=== PATIENT | male | born 1965 | race Caucasian/White ===

== ENCOUNTER 2022-06-30 09:26 | Inpatient (IN) | payer SELFPAY ==
--- OUTSIDE RECORDS SUMMARY | 2022-06-30 09:30 | XMS REPORT | Continuity of Care Document ---
:1965 Author Organization [facility] t Address [address] [place] [address] Care Team Providers Name Role Phone Atif PARKER, Best Mckenzie Primary Care Physician Mr. TITI FRANKS Attending Clinician Unavailable allan Attending Clinician Unavailable Lisa MARI, Michael Saunders Attending Clinician [phone] MARCI LUNA Attending Clinician Unavailable MARCI LUNA Admitting Clinician Unavailable Payers Payer Name Policy Type Policy Number Effective Date Expiration Date S ource Sliding Fee - P [id number] 2018 2019 Cat 1 00:00:00 00:00:00 Problems Condition Condition Condition Status Onset Resolution Last Treating Co mments Source Name Details Category Date Date Treatment Clinician Date Left Left Disease Active Methodi shoulder shoulder 2-28 st pain pain 00:00: Hospita 00 l Impingemen Impingemen Disease Active M ethodi t syndrome t syndrome 2-28 st of left of left 00:00: Hospita shoulder shoulder 00 l Allergies, Adverse Reactions, Alerts Allergy Allergy Status Severity Reaction(s) Onset Inactive Treating Comm ents Source Name Type Date Date Clinician IODINE; Miscella Active U Not Alevism IODINE neous Specified 09-13 Hospita CONTAINI Allergy 22:53: l NG 14 ([place]) IODINE; Miscella Active U Not Alevism IODINE neous Specified 09-13 Hospita CONTAINI Allergy 22:53: l NG 14 ([place]) IODINE; Miscella Active U Not Alevism IODINE neous Specified 09-13 Hospita CONTAINI Allergy 22:53: l NG 14 ([place]) IODINE; Miscella Active U Not Alevism IODINE neous Specified 09-13 Hospita CONTAINI Allergy 22:53: l NG 14 ([place]) IODINE; Miscella Active U Not Alevism IODINE neous Specified 09-13 Hospita CONTAINI Allergy 22:53: l NG 14 ([place]) No Known NA Active Alevism Allergie 09-13 Hospita s 21:22: l 08 ([place]) No Known NA Active Alevism Allergie 09-13 Hospita s 18:53: l 41 ([place]) Iodine Propensi Active Methodi ty to 04-07 st adverse 00:00: Hospita reaction 00 l s to drug Social History Social Habit Start Date Stop Date Quantity Comments Source [facility] History SDHI [facility] al History [facility] History [facility] Comment [facility] Tobacco use and 2021-10-17 2021-10-17 Smokeless [facility] exposure 00:00:00 00:00:00 tobacco non-user Hospital Alcohol intake 2021-10-17 2021-10-17 Current [facility] 00:00:00 00:00:00 non-drinker of Hospital alcohol (finding) History of Social 2021-10-17 2021-10-[address] function 00:00:00 00:00:00 Hospital History SDOH 2018-04-07 2018-04-07 1 [facility] Frequency 00:00:00 00:00:00 Hospita l Sex Assigned At [birth year] [facility] 00[facility]00 [facility] Smoking Status Start Date Stop Date Source Never smoked tobacco [facility] Medications Ordered Filled Start Stop Current Ordering Indication Dosage Frequency Signature Comments Components Source Medication Medication Date Date Medication? Clinician (SIG) Name Name pravastatin 2021- No 10mg QD Take 10 mg Methodi (PRAVACHOL) 10-[address] 10 MG 13:16: 00:00 nightly. Hospita tablet 54 :00 l pravastatin 2021- No 10mg QD Take 10 mg [facility] (PRAVACHOL) 10-[address] 10 MG 13:16: 00:00 nightly. Hospita tablet 54 :00 l metFORMIN 2021- No 500mg Q.5D Take 500 Me thodi (GLUCOPHAGE 10-[address] ) 500 mg 13:16: 00:00 mouth 2 Hospi ta tablet 50 :00 (two) l times a day with meals. metFORMIN 2021-2021- No 500mg Q.5D Take 500 Me thodi (GLUCOPHAGE 10-[address] ) 500 mg 13:16: 00:00 mouth 2 Hospi ta tablet 50 :00 (two) l times a day with meals. chlorthalid 2021- No 25mg QD Take 1 Met hodi one 10-17 10-10 tablet (25 st (HYGROTEN) 00:00: 04:59 mg total) H ospita 25 MG 00 :00 by mouth l tablet daily for 30 days. gabapentin 2021- No 100mg Q.5D Take 1 Met hodi (NEURONTIN) 10-17 10-[address] 100 mg 00:00: 04:59 (100 mg Hospita capsule 00 :00 total) by l mouth 2 (two) times a day for 30 days. Glumetza 2021- No 1000mg QD Take 1 Meth stephany 1,000 mg 24 10-17-[address] hr tablet 00:00: 04:59 (1,000 mg Ho spita 00 :00 total) by l mouth daily with breakfast for 30 days. Jardiance 2021-2021- No 10mg QD Take 1 Metho di 10 mg 10-17 10-10 tablet (10 st tablet 00:00: 04:59 mg total) Hospi ta tablet 00 :00 by mouth l daily for 30 days. chlorthalid 2021-0 2021- No 25mg QD Take 1 Met hodi one 9-09 10-10 tablet (25 st (HYGROTEN) 00:00: 04:59 mg total) H ospita 25 MG 00 :00 by mouth l tablet daily for 30 days. gabapentin 2021- No 100mg Q.5D Take 1 Met hodi (NEURONTIN) 10-[address] 100 mg 00:00: 04:59 (100 mg Hospita capsule 00 :00 total) by l mouth 2 (two) times a day for 30 days. Glumetza No 1000mg QD Take 1 Meth stephany 1,000 mg 24 10-[address] hr tablet 00:00: 04:59 (1,000 mg Ho spita 00 :00 total) by l mouth daily with breakfast for 30 days. Jardiance No 10mg QD Take 1 Metho di 10 mg 10-17 tablet (10 st tablet 00:00: 04:59 mg total) Hospi ta tablet 00 :00 by mouth l daily for 30 days. amoxicillin 2021- No 1{tbl} Q.5D Take 1 M ethodi -pot 10-[address] clavulanate 00:00: 04:59 mouth 2 Ho spita (Augmentin) 00 :00 (two) l 875-125 mg times a per tablet day for 10 days. amoxicillin 2021- No 1{tbl} Q.5D Take 1 M ethodi -pot 10-[address] clavulanate 00:00: 04:59 mouth 2 Ho spita (Augmentin) 00 :00 (two) l 875-125 mg times a per tablet day for 10 [place] [id number] 1{tbl} Q6H Take 1 Methodi en-codeine 10-[address] (TYLENOL 00:00: 04:59 mouth Hospita WITH 00 :00 every 6 l CODEINE #3) (six) 300-30 mg hours as per tablet needed for moderate pain for up to 5 [place] [id number] 1{tbl} Q6H Take 1 Methodi en-codeine 10-[address] (TYLENOL 00:00: 04:59 mouth Hospita WITH 00 :00 every 6 l CODEINE #3) (six) 300-30 mg hours as per tablet needed for moderate pain for up to 5 days .acute pain. chlorthalid 2021-2021- No Metho di one 08-22 st (HYGROTEN) 00:00: 00:00 Hospit a 25 MG 00 :00 l tablet Jardiance 2021-0 202- No Methodi 10 mg 08-22 st tablet 00:00: 00:00 Hospita tablet 00 :00 l gabapentin 2021-0 202- No Method i (NEURONTIN) 08-22 st 100 mg 00:00: 00:00 Hospita capsule 00 :00 l Glumetza 2021-0 202- No Methodi 1,000 mg 24 08-22 st hr tablet 00:00: 00:00 Hospita 00 :00 l chlorthalid 2021-0 2021- No Metho di one 08-22 st (HYGROTEN) 00:00: 00:00 Hospit a 25 MG 00 :00 l tablet Jardiance 2021-0 2- No Methodi 10 mg 08-22 st tablet 00:00: 00:00 Hospita tablet 00 :00 l gabapentin 2021-0 2022- No Method i (NEURONTIN) 08-22 st 100 mg 00:00: 00:00 Hospita capsule 00 :00 l Glumetza 2022-0 2022- No Methodi 1,000 mg 24 08-22 st hr tablet 00:00: 00:00 Hospita 00 :00 l pravastatin 2019-0 Yes 10mg QD Take 10 mg Methodi (PRAVACHOL) 2-[address] 10 MG 08:55: nightly. Hospita tablet 55 l metFORMIN 2019-0 Yes 500mg Q.5D Take 500 Met hodi (GLUCOPHAGE 2-[address] ) 500 mg 08:21: mouth 2 Hospit a tablet 49 (two) l times a day with meals. Vital Signs Vital Name Observation Time Observation Value Comments Source Systolic blood 2021-10-17 22:59:50 153 mm[Hg] [facility] pressure Diastolic blood 2021-10-17 22:59:50 76 mm[Hg] Metho dist Hospital pressure Heart rate 2021-10-17 22:59:50 97 /min [facility] Respiratory rate 2021-10-17 22:59:50 20 /min [facility] Oxygen saturation in 2021-10-17 22:59:50 98 /min [facility] Arterial blood by Pulse oximetry Body temperature 2021-10-17 18:12:48 36.67 Dian [facility] Body height 2021-10-17 18:10:00 170.2 cm [facility] Body weight 2021-10-17 18:10:00 81.647 kg [facility] BMI 2021-10-17 18:10:00 28.19 kg/m2 [facility] Procedures Procedure Date / Time Performing Clinician Source Performed ED REFERRAL TO [place] 2021-10-17 22:13:50 Michael Gonzalez [facility] PHYSICIAN Chip ORGANIZATION (PCP) CBC WITH PLATELET AND 2021-10-17 19:41:00 Ben Madrigal [facility] DIFFERENTIAL COMPREHENSIVE METABOLIC 2021-10-17 19:41:00 Ben Madrigal [facility] PANEL ESTIMATED GFR 2021-10-17 19:41:00 Ben Madrigal [facility] ospital POC GLUCOSE 2021-10-17 18:14:00 Provider, Unknown [facility] Plan of Care Planned Activity Planned Date Details Comments Source Future Scheduled 2022-06-30 COVID-19 VACCINE (#1) [facility] [place] [place] Test 09:29:48 [code = COVID-19 VACCINE (#1)] Future Scheduled 2022-06-30 Hepatitis C screening [facility] [place] Test 09:29:48 (procedure) [code = 671347358] Future Scheduled 2022-06-[address] [facility] [place] Test 09:29:48 [code = COLONOSCOPY SCREENING] Future Scheduled 2022-06-30 SHINGLES VACCINES (1 Met [facility] Test 09:29:48 of 2) [code = SHINGLES VACCINES (1 of 2)] Future Scheduled 2022-06-30 INFLUENZA VACCINE Method [facility] Test 09:29:48 [code = INFLUENZA VACCINE] Future Scheduled 2022-05-15 COVID-19 VACCINE (#1) [facility] [place] Test 15:48:39 [code = COVID-19 VACCINE (#1)] Future Scheduled 2022-05-15 Hepatitis C screening [facility] [place] [place] Test 15:48:39 (procedure) [code = 605620284] Future Scheduled 2022-05-[address] [facility] [place] Test 15:48:39 [code = COLONOSCOPY SCREENING] Future Scheduled 2022-05-15 SHINGLES VACCINES (1 Met [facility] Test 15:48:39 of 2) [code = SHINGLES VACCINES (1 of 2)] Future Scheduled 2022-05-15 INFLUENZA VACCINE [facility] Hospital Test 15:48:39 [code = INFLUENZA VACCINE] Future Scheduled 2020-12-11 COVID-19 VACCINE (1) Met [facility] Test 16:07:36 [code = COVID-19 VACCINE (1)] Future Scheduled 2020-12-11 Hepatitis C screening [facility] [place] [place] Test 16:07:36 (procedure) [code = 557651157] Future Scheduled 2020-12-[address] [facility] [place] Test 16:07:36 [code = COLONOSCOPY SCREENING] Future Scheduled 2020-12-11 SHINGLES VACCINES [facility] Hospital Test 16:07:36 (#1) [code = SHINGLES VACCINES (#1)] Future Scheduled 2020-12-11 INFLUENZA VACCINE Method is Hospital Test 16:07:36 [code = INFLUENZA VACCINE] Encounters Start End Encounter Admission Attending Care Care Encounter Source Date/Time Date/Time Type Type Clinicians Facility Department ID 2021-08-18 Outpatient [facility] [id number] [place] 11:32:19 TITI [id number] [address] 2021-08-18 Outpatient jose [facility] [id number] [place] 09:29:04 [id number] [facility] 2020-11-21 Outpatient [facility] [id number] [facility] 18:09:56 [id number] [facility] 2021-10-17 2021-10-17 Emergency Imanignani, 1.2.840.1 [id number] Methodi 14:37:00 18:01:00 Michael Saunders [id number] 3.430.2.7 Hospit a .3.018775 l .8 2021-10-17 2021-10-17 Emergency Lisa, 1.2.840.1 [id number] Methodi 14:37:00 18:01:00 Michael Saunders [id number] 3.430.2.7 Hospit a .3.195230 l .8 2021-08-22 2021-08-22 Outpatient [id number]. 2.16.540.1. 9 [id number] [facility] 16:52:07 16:52:07 [id number]. [id number] [facility] 19.2 [facility] 2020-09-13 2020-09-13 Emergency DAWSON LUNA QER [id number] Alevism 18:53:00 18:53:00 MARCI Hospit a l ([facility]) Results Test Description Test Time Test Comments Results Result Comments Source POC glucose 2021-10-17 18:15:00 Test Item Value Reference Range Interpretation Comme nts POC glucose (test code = 82002-9) 334 mg/dL 65-100 H Chiropractic Assistant Name: Jolly Soares~Device I D: [id number] Lab Interpretation (test code = Abnormal 33077-0) [facility] [id number] 18:15:00 Test Item Value Reference Range Interpretation Comments POC glucose (test code = 334 mg/dL 65-100 H Ope rator Name: [id number]) Jollytien Annvinny~De vice ID: [id number] Lab Interpretation (test Abnormal code = 88479-7) [facility] [id number] 04:24:28 Test Item Value Reference Range Interpretation Comments GLUCOSE (test code = 250 MG/DL 70-99 H 2216) BUN (test code = 14 MG/DL -20 2207) CREATININE (test 0.81 MG/DL 0.80-1.40 code = 2214) eGFR (2020 CKD-EPI) 104 >60 (test code = 63002) ML/MIN/1.73 CALC BUN/CREAT (test 17 RATIO - code = 2235) SODIUM (test code = 139 MEQ/L 637-614 9820) POTASSIUM (test code 4.5 MEQ/L 3.5-5.4 = 2228) CHLORIDE (test code 99 MEQ/L 95-107 = 2215) CARBON DIOXIDE (test 27 MEQ/L 19-31 code = 2206) CALCIUM (test code = 9.6 MG/DL 8.5-10.5 2208) PROTEIN, TOTAL (test 7.8 G/DL 6.1-8.3 code = 2229) ALBUMIN (test code = 4.5 G/DL 3.5-5.2 2200) CALC GLOBULIN (test 3.3 G/DL 1.9-3.7 code = 2240) CALC A/G RATIO (test 1.4 RATIO 1.0-2.6 code = 2234) BILIRUBIN, TOTAL 0.5 MG/DL See_Comment [Automated message] (test code = 220) The syste m which generated this result transmit carlos alberto reference range : <=1.2. The refe rence range was not u sed to interpret th is result as normal/abnormal . ALKALINE PHOSPHATASE 121 U/L 40-121 (test code = 220) AST (test code = 17 U/L 9-50 2217) ALT (test code = 27 U/L 5-50 2218) LIPID [id number] 04:24:28 Test Item Value Reference Range Interpretation Comments CHOLESTEROL (test 170 MG/DL <200 code = 2210) TRIGLYCERIDES (test 254 MG/DL <150 H code = 2232) HDL CHOLESTEROL (test 41 MG/DL >39 code = 2220) CALC LDL CHOL (test 96 MG/DL <100 NOTE: C ALCULATED LDL code = 2237) IS BASED ON NIMISHA-GAVIRIA METHOD WHICHINCLUDES ADJUSTABLE TRIGLYCERIDE:VL DL CHOLESTEROL RAT IO.THIS FACTOR VARIES B Y MEASURED TRIGLY CERIDE AND NON-HDLCHOL ESTEROL CONCENTRATIONS WITH INCREASED CALCU LATED LDL SEENIN HIGH ER TRIGLYCERIDE OR LOWER NON-HDL SPECIME NS. FOR MOREINFORMATION , SEE CLIENT ANNOUNCE MENT AT [email or web address] LDL/HDL 2.34 RATIO <3.55 UNLESS O THERWISE (test code = 2238) INDICATED , ALL TESTING PERFORMED [facility], [place]. [address] [place] [address] [facility] DIRECTOR: EDGAR OLSEN M.D. CLIA NUMBER [id number] CAP ACCREDITATION N O. [id number] TSH, THIRD [id number] 04:18:18 Test Item Value Reference Range Interpretation Comments TSH, THIRD GENERATION (test code 2.340 UIU/ML 0.400-4.100 = 2821) BLOOD [id number] 07:26:00 Test Item Value Reference Range Interpretation Comments Report Text (test [facility] 2020-09-132120 code = Report Text) Report Text7 (test BLOOD CULTURES HELD FOR code = Report 5 DAYS BEFORE FINAL Text7) Report Text8 (test code = Report Text8) Report Text9 (test [employer] OF code = Report MICROBIOLOGY SUGGESTS THAT Text9) Report Text10 (test MOST CASES OF BACTEREMIA code = Report ARE DETECTED BY USING Text10) Report Text11 (test THREE SETS OF SEPARATELY code = Report COLLECTED BLOOD CULTURES. Text11) Report Text12 (test [facility] 2020-09-132121 code = Report Text12) Report Text13 (test CONVERSELY, A SINGLE BLOOD code = Report CULTURE MAY MISS Text13) Report Text14 (test INTERMITTENTLY OCCURRING code = Report BACTEREMIA AND MAKE Text14) Report Text15 (test IT DIFFICULT TO INTERPRET code = Report THE CLINICAL Text15) Report Text16 (test SIGNIFICANCE OF CERTAIN code = Report ISOLATED ORGANISMS. Text16) Report Text17 (test code = Report Text17) Report Text18 (test [facility] 2020-09-132122 code = Report Text18) Report Text19 (test DRAWN FROM RIGHT code = Report ANTICUBITAL VEIN Text19) Report Text20 (test code = Report Text20) Report Text21 (test 2020-09-14 652 code = Report Text21) Report Text22 (test NO GROWTH WITHIN 1 DAY code = Report Text22) Report Text23 (test PRELIMINARY REPORT code = Report Text23) Report Text24 (test code = Report Text24) Report Text25 (test 2020-09-15 708 code = Report Text25) Report Text26 (test NO GROWTH WITHIN 2 DAYS code = Report Text26) Report Text27 (test PRELIMINARY REPORT code = Report Text27) Report Text28 (test code = Report Text28) Report Text29 (test 2020-09-18 726 code = Report Text29) Report Text30 (test NO GROWTH WITHIN 5 DAYS code = Report Text30) Report Text31 (test FINAL REPORT code = Report Text31) BLOOD [id number] 07:26:00 Test Item Value Reference Range Interpretation Comments Report Text (test [facility] 2020-09-132115 code = Report Text) Report Text7 (test BLOOD CULTURES HELD FOR code = Report 5 DAYS BEFORE FINAL Text7) Report Text8 (test code = Report Text8) Report Text9 (test [employer] OF code = Report MICROBIOLOGY SUGGESTS THAT Text9) Report Text10 (test MOST CASES OF BACTEREMIA code = Report ARE DETECTED BY USING Text10) Report Text11 (test THREE SETS OF SEPARATELY code = Report COLLECTED BLOOD CULTURES. Text11) Report Text12 (test [facility] 2020-09-132116 code = Report Text12) Report Text13 (test CONVERSELY, A SINGLE BLOOD code = Report CULTURE MAY MISS Text13) Report Text14 (test INTERMITTENTLY OCCURRING code = Report BACTEREMIA AND MAKE Text14) Report Text15 (test IT DIFFICULT TO INTERPRET code = Report THE CLINICAL Text15) Report Text16 (test SIGNIFICANCE OF CERTAIN code = Report ISOLATED ORGANISMS. Text16) Report Text17 (test code = Report Text17) Report Text18 (test [facility] 2020-09-13 2118 code = Report Text18) Report Text19 (test COLLECTION SITE code = Report UNSPECIFIED Text19) Report Text20 (test 2020-09-14 652 code = Report Text20) Report Text21 (test NO GROWTH WITHIN 1 DAY code = Report Text21) Report Text22 (test PRELIMINARY REPORT code = Report Text22) Report Text23 (test code = Report Text23) Report Text24 (test 2020-09-15 708 code = Report Text24) Report Text25 (test NO GROWTH WITHIN 2 DAYS code = Report Text25) Report Text26 (test PRELIMINARY REPORT code = Report Text26) Report Text27 (test code = Report Text27) Report Text28 (test 2020-09-18 726 code = Report Text28) Report Text29 (test NO GROWTH WITHIN 5 DAYS code = Report Text29) Report Text30 (test FINAL REPORT code = Report Text30) [id number] 03:01:00 Test Item Value Reference Range Interpretation Comments PROCALCITONIN (test 0.416 ng/mL 0.0-0.5 0 - 0.5 ng/mL- Low code = PROCAL) risk for prog ression to severe sepsi s and/or septic s hock. PCT >0.5 is considered elev ated. 2.0 - 10 ng/mL- High risk for progre ssion to severe sepsi s and/or septic s hock. >/= 10 ng/mL - Severe sepsis o r septic shock. H igh risk of Mortali ty. PCT levels <0.5 ng/mL do not ex clude an infection. [id number] 22:30:00 Test Item Value Reference Range Interpretation Comments BLOOD TYPE (test B Rh Positive Comment for code = TYPE) Female s Rhogam may be indicated for patient dependi ng baby's Rh statu s. ANTIBODY SCREEN NEGATIVE NEGATIVE (test code = SCREEN) [id number] 22:26:00 Test Item Value Reference Range Interpretation Comments FERRITIN (test code = FERR) 472 NG/ML 18-464 H C-REACTIVE [id number] 22:02:00 Test Item Value Reference Range Interpretation Comments CRP (test code = CRP) 24.8 mg/dL 0.5-1.[address] THORAX W/O [id number] 21:59:00 [facility] : 1965 [facility] [place] [address] [id number] IMAGING RE PORTPatient Name: Camelia HYATT of Service: 29-25-1963Hoz: 55 Sex: M Order #: [id number] Room: ERSDOB: 1965 X-Ray Number: [id number] Record Number: [id number] Hospital Number: [id number] Physician: MARCI LUNAOrderjoy Physician: MARCI LUNAPROCEDURE: CT THORAX W/O CONTINDICATIONS: Dx: cough with feverPt sts: cough with fever, SOB. Covidpositive today.NohaPSV: KARCT chest without contrastComparison: NoneFindings:No mediastinal mass or lymphadenopathy.No cardiomegaly. Moderate to severe calcified coronary artery disease.Normal-sized thoracic aorta with mild calcified atherosclerotic disease.No pulmonary parenchymal or airway pathology.No pneumothorax or pleural effusion.No acute osseous or soft tissue abnormality.No acute pathology in the imaged portion of the upper abdomen. Hepaticsteatosis. The spleen is mildly enlarged measuring 15.6 cm inanterior-posteriordimension.Impression:No acute findings. No CT evidence of COVID-19.This document has been electronically signed by: Ramon Cole 09/13/2020 21:59:23Legally authenticated by ST YASMIN DIAZ 2020-09-13 20:57:00PROBRAIN NATRIURETIC [id number] 21:56:00 Test Item Value Reference Range Interpretation Comments NT-PROBNP (test code 189 pg/mL Exclusi on for heart = PROBNP) failure for pat ients of all ages is 300 pg/mL. Inclusion for h eart failure for pat ients age <50 is 450 pg/m L; for patients age 50 -75 is 900 pg/mL; for patients age >75 is 1800 pg/mL. TROPONIN I - [id number] 21:56:00 Test Item Value Reference Range Interpretation Comments TROP-I (test code <0.012 ng/ml 0.012-0.033 IN TERPRETIVE = TROP-I) DATA A TR OPONIN OF LESS THAN 0.034 NG/ML IS CONSIDERED NEGA TIVE A TROPONIN OF 0.0 34 - 0.119 NG/ML IS CONSIDERED LYLES ZONE A TROPONIN =/> 0. 120 NG/ML IS CONSIDERED P OSITIVE PROTHROMBIN TIME WITH [id number] 21:53:00 Test Item Value Reference Range Interpretation Comments PROTHROMBIN TIME 13.5 SECONDS 10.1-12.7 H INR Usual R marissa = 2 (test code = PT) to 3 for pr evention of deep vein thrombosis (DVT ) INR (test code = INR) 1.1 [id number] 21:53:00 Test Item Value Reference Range Interpretation Comments PTT (test code = 31.0 SECONDS 25.0-36.5 HEPARIN THE RAPEUTIC PTT) RANGE 57-92 SEC ONDS D-DIMER, [id number] 21:53:00 Test Item Value Reference Range Interpretation Comments D-DIMER (test 690 ng/mL (FEU) 0-500 H VALUES OF Q UANTITATIVE code = DDIMER) D-DIMER LESS THAN 499 ng/mL HAVE BEEN REPORTED TO BE ASSOCIATED WITH A LOW PROBABILITY OF DEEP VEIN THROMBOSIS/PULM ONARYEMB OLISM. THIS TROY T ALONE SHOULD NOT BE U SED TO RULE OUT DVT/PE . [id number] 21:52:00 Test Item Value Reference Range Interpretation Comments WBC (test code = 11.9 K/UL 3.5-10.9 H WBC) RBC (test code = 4.78 M/UL 4.3-5.7 RBC) HGB (test code = 15.3 G/DL 13.0-17.9 HGB) HCT (test code = 43.0 % 38-52 HCT) MCV (test code = 90.0 FL 80-98 MCV) MCH (test code = 32.0 PG 28-32 MCH) MCHC (test code = 35.6 G/DL 32.5-36.5 MCHC) RDW (test code = 11.8 % 11.5-14.5 RDW) PLT (test code = 215 K/UL 150-450 PLT) MPV (test code = 9.0 FL 7.4-10.4 MPV) MANDIFF (test code = NO MANDIFF) SCAN (test code = NO SCAN) NEUT% (test code = 68.9 % 40-75 NEUT%) LYMPH% (test code = 20.7 % 24-44 L LYMPH%) MONO% (test code = 8.5 % 0-13 MONO%) EOS% (test code = 0.8 % 0-4 EOS%) BASO % (test code = 0.3 % 0-2 BASO%) IG (test code = IG) 0 % 0-1 IG% (test code = 0.8 % 0-1 IG% = Metam yelocytes, IG%) Myelocytes, and Promyelocytes. (Immature neutr ophils not including " bands".) > 3% IG indic ates risk of sepsis NRBC% (test code = 0 /100 WBC NRBC%) ABS NEUT (test code 8.2 K/UL 1.2-7.2 H = NEUT) [id number] 21:51:00 Test Item Value Reference Range Interpretation Comments PHOSPHOR (test code = PHOSPHOR) 3.5 MG/DL 2.5-4.5 [id number] 21:51:00 Test Item Value Reference Range Interpretation Comments SODIUM (test code 133 MMOL/L 137-145 L = NA) K+ (test code = 3.6 MMOL/L 3.5-5.1 KSERUM) CHLORIDE (test 95 MMOL/L 98-107 L code = CL) CO2 (test code = 26 MMOL/L 22-30 CO2) BUN (test code = 8 MG/DL 9-20 L BUN) CREA (test code = 0.6 MG/DL 0.8-1.5 L CREA) GLUCOSE (test code 343 MG/DL 70-99 H Fasting glucose = GLUCOSE) normal <100 MG/ DL- [employer] recommendation* * CALCIUM (test code 9.1 MG/DL 8.4-10.2 = CABLOOD) TOTPROT (test code 8.1 G/DL 6.3-8.2 = TOTPROT) ALBUMIN (test code 4.1 G/DL 3.5-5.0 = ALBSERUM) BILITOT (test code 0.6 MG/DL 0.2-1.3 = BILITOT) AST (test code = 27 U/L 15-46 AST) PHOSALK (test code 139 U/L 38-126 H = PHOSALK) ALTV (test code = 26 U/L 13-69 ALTV) GFR (test code = 149 A GFR of >9 0 GFR) mL/min/1.73m2 mL/min/1.73m2 is considered norm al. The GFR calcula tion on patients ove r 70 years of age is not validated by e classified ad clerk an d may not represent t he patients true r enal function. [id number] 21:51:00 Test Item Value Reference Range Interpretation Comments LDH (test code = LDH) 447 U/L 313-618 [id number] 21:51:00 Test Item Value Reference Range Interpretation Comments MG (test code = MG) 1.8 mg/dL 1.6-2.3 COVID SYMPTOMATIC ER [id number] 20:50:00 Test Item Value Reference Range Interpretation Comments CORONAVIRUS (COVID-19)BY PCR (test POSITIVE code = GWF38DIJ) CHEST 1 VIEW [id number] 19:19:00 [facility] 1965 Sex: M[address] [id number] IMAGING RE PORTPatient Name: CHARI HYATTate of Service: [id number]: 55 Sex: M Order #: [id number] [facility]1965 [facility] Number: [id number] Record Number: [id number] Hospital Number: [id number]: Dalton LUNA Physician: MATT LUNA ONE VIEW 09/13/2020HISTORY: Productive cough, fever, shortness of breathCOMPARISON: NoneTECHNIQUE: PA view of the chestCardiac, hilar, and mediastinal structures are within normal limits. Lungsare well-aerated and clear. No acute bony or soft tissue abnormalities areidentified.IMPRESSION:Clear chest.Electronically Signed By: Ramiro Franks M.D., 09/13/2020 7:17 PMLegally authenticated by GOLDEN KENNEDY 2020-09-13 19:17:15 Notes Date/Time Note Provider Source 2020-09-13 20:57:00-00:00 [facility] Jessie Craft CLAIR [facility] [address] [place] [address] DIAGNOSTIC IMAGING REPORT Patient Name: WINSTON HYATT Date of Service: 09-13-2020 Age: 55 Sex: M Order #: [id number] Room: [facility] : 1965 X-Ray Number: [id number] Hospital Number : [id number] Admitting Physician: MARCI LUNA Ordering Physician: MARCI LUNA PROCEDURE: CT THORAX W/O CONT INDICATIONS: Dx: cough with feverPt sts: cough w ith fever, SOB. Covid positive today.NohaPSV: JASON CT chest without contrast Comparison: None Findings: No mediastinal mass or lymphadenopathy. No cardiomegaly. Moderate to severe calcified co ronary artery disease. Normal-sized thoracic aorta with mild calcified atherosclerotic disease. No pulmonary parenchymal or airway pathology. No pneumothorax or pleural effusion. No acute osseous or soft tissue abnormality. No acute pathology in the imaged portion of the upper abdomen. Hepatic steatosis. The spleen is mildly enlarged measuri ng 15.6 cm in anterior-posterior dimension. Impression: No acute findings. No CT evidence of COVID-19. This document has been electronically signed by: Rere Butler MD on 09/13/2020 21:59:[address] YASMIN DIAZ 09-13 20:57:00 2020-09-13 19:17:15-00:00 [facility] [place] [address] DIAGNOSTIC IMAGING REPORT Patient Name: WINSTON HYATT Date of Service: 09-13-2020 Age: 55 Sex: M Order #: [id number] Room: [facility] : 1965 X-Ray Number: [id number] Hospital Number : [id number] Admitting Physician: MARCI LUNA Ordering Physician: MARCI LUNA CHEST ONE VIEW 09/13/2020 HISTORY: Productive cough, fever, shortness of b reath COMPARISON: None TECHNIQUE: PA view of the chest Cardiac, hilar, and mediastinal structures are w ithin normal limits. Lungs are well-aerated and clear. No acute bony or sof t tissue abnormalities are identified. IMPRESSION: Clear chest. Electronically Signed By: Ramiro Franks M.D., 2020 7:17 PM Legally authenticated by GOLDEN KENNEDY 2020-09-13 1 9:17:15
[2022-06-30] MEDS ORDERED: NA CHLORIDE 0.9% 1,000 ML ONE (09:46)
[2022-06-30 09:47] LABS: Absolute Lymphocytes (CBC) 2.2 K/uL (0.7-4.9); Hematocrit 43.5 % (39.6-49.0); Lymphocytes % 40.8 % (15.3-44.8); MCV 91.7 fL (80-100); MPV 7.1 fL (7.6-11.3); RBC Red Blood Cell Count 4.75 M/uL (4.33-5.43)
[2022-06-30 09:57] LABS: Specific Gravity 1.028 (1.005-1.030); Urine Bacteria None Seen /HPF (<20); Urine Bilirubin NEGATIVE (Negative); Urine Blood Negative (Negative); Urine Clarity Clear (Clear); Urine Color Light-Yellow (Yellow); Urine Glucose 4+ (Over) (Negative); Urine Protein NEGATIVE (Negative); Urine RBC None Seen /HPF (None Seen); Urine Urobilinogen Normal (Normal)
[2022-06-30 10:15] LABS: Albumin 3.7 g/dL (3.4-5.0); Bilirubin Direct 0.2 mg/dL (0-0.2); Bilirubin Indirect, Calculated 0.6 mg/dL (0.2-0.8); Bilirubin Total 0.8 mg/dL (0.2-1.0); Magnesium 1.9 mg/dL (1.6-2.4); Potassium 3.6 mEq/L (3.5-5.1); Protein, Total 7.7 g/dL (6.4-8.2); Troponin High Sensitivity 24.1 pg/mL (<58.9)
--- NOTE | 2022-06-30 10:18 | RAD REPORT ---
EXAM DESCRIPTION: RAD - Chest Single View - 06/30/2022 10:05 am CLINICAL HISTORY: CHEST PAIN Chest pain. COMPARISON: No comparisons FINDINGS: Portable technique limits examination quality. The lungs are grossly clear. The heart is normal in size. No displaced fractures. IMPRESSION: No acute intrathoracic process suspected.
[2022-06-30] MEDS ORDERED: INSULIN -REGULAR HUMAN 50 UNIT/0.5 ML ML ONE (11:02)
[2022-06-30] MEDS ORDERED: ASPIRIN 81 MG CHEWABLE TABLET ONE (12:35)
--- NOTE | 2022-06-30 12:39 | ER ---
Nurse's Notes [facility] Name: Louisa Rosales III Age: 57 yrs Sex: Male : 1965 Arrival Date: 06/30/2022 Time: 09:26 Bed 19 Private MD: Diagnosis: NSTEMI Presentation: 06/30 09:35 Chief complaint: EMS states: patient had chest pain and weakness while at work, then ko1 became agitated. Coronavirus screen: At this time, the client does not indicate any symptoms associated with coronavirus-19. Ebola Screen: No symptoms or risks identified at this time. Initial Sepsis Screen: Does the patient meet any 2 criteria? No. Patient's initial sepsis screen is negative. Does the patient have a suspected source of infection? No. Patient's initial sepsis screen is negative. Risk Assessment: Do you want to hurt yourself or someone else? Patient reports no desire to harm self or others. Onset of symptoms was June 30, 2022. 09:35 Method Of Arrival: EMS: BASF ko1 09:35 Acuity: RICARDO 3 ko1 Triage Assessment: 09:49 General: Appears in no apparent distress. comfortable, Behavior is calm, cooperative, ko1 appropriate for age. Pain: Complains of pain in chest. Historical: - Allergies: 09:49 No Known Allergies; ko1 - Home Meds: 09:49 None [Active]; ko1 - PMHx: 09:49 diabetes mellitus; ko1 - Immunization history:: Adult Immunizations up to date. - Social history:: Smoking status: Patient denies any tobacco usage or history of. Screenin:30 [facility] ED Fall Risk Assessment (Adult) History of falling in the last 3 months, ko1 including since admission No falls in past 3 months (0 pts) Confusion or Disorientation No (0 pts) Intoxicated or Sedated No (0 pts) Impaired Gait No (0 pts) Mobility Assist Device Used No (0 pt) Altered Elimination No (0 pt) Score/Fall Risk Level 0 - 2 = Low Risk Oriented to surroundings, Maintained a safe environment, Educated pt \T\ family on fall prevention, incl call for assistance when getting out of bed, Assessed \T\ reinforced patient's understanding of fall precautions, Provided non-skid footwear, Hourly rounding (assess needs \T\ fall precautionary measures) done, Used ambulatory aids as needed (educated on \T\ assisted with), Used gait belt as appropriate. Abuse screen: Denies threats or abuse. Denies injuries from another. Nutritional screening: No deficits noted. Tuberculosis screening: No symptoms or risk factors identified. Assessment: 10:30 Neuro: No deficits noted. Cardiovascular: Reports chest pain. Respiratory: No deficits ko1 noted. GI: No deficits noted. : No deficits noted. EENT: No deficits noted. Derm: No deficits noted. Musculoskeletal: No deficits noted. 12:00 Reassessment: Patient appears in no apparent distress at this time. No changes from ko1 previously documented assessment. Patient and/or family updated on plan of care and expected duration. Pain level reassessed. Patient is alert, oriented x 3, equal unlabored respirations, skin warm/dry/pink. Patient states feeling better. 13:00 Reassessment: Patient appears in no apparent distress at this time. No changes from ko1 previously documented assessment. Patient and/or family updated on plan of care and expected duration. Pain level reassessed. Patient is alert, oriented x 3, equal unlabored respirations, skin warm/dry/pink. 14:00 Reassessment: Patient appears in no apparent distress at this time. No changes from ko1 previously documented assessment. Patient and/or family updated on plan of care and expected duration. Pain level reassessed. Patient is alert, oriented x 3, equal unlabored respirations, skin warm/dry/pink. Patient denies pain at this time. 15:00 Reassessment: Patient and/or family updated on plan of care and expected duration. Pain ko1 level reassessed. 16:00 Reassessment: Patient and/or family updated on plan of care and expected duration. Pain ko1 level reassessed. Patient is alert, oriented x 3, equal unlabored respirations, skin warm/dry/pink. Vital Signs: 09:49 BP 148 / 91; Pulse 85; Resp 18; Pulse Ox 96% on R/A; ko1 11:14 BP 152 / 74; Pulse 84; Resp 18; Pulse Ox 97% on R/A; ko1 12:00 BP 171 / 77; Pulse 80; Resp 18; Pulse Ox 98% ; ko1 13:00 BP 139 / 96; Pulse 78; Pulse Ox 98% ; ko1 14:00 BP 142 / 98; Pulse 87; Resp 18; Pulse Ox 99% ; ko1 15:00 BP 139 / 81; Pulse 86; Pulse Ox 98% ; ko1 16:00 BP 137 / 81; Pulse 81; Resp 18; Pulse Ox 98% ; ko1 ED Course: 09:31 Patient arrived in ED. ko1 09:31 Familia Iqbal MD is Attending Physician. sp3 09:38 UAM Sent. ld1 09:42 Maintain EMS IV. Dressing intact. Good blood return noted. Site clean \T\ dry. Gauge \T\ ld 1 site: 20g LAC. 09:46 Vale Khan, VIRIDIANA is Primary Nurse. ko1 09:46 Lactate w/ 2H reflex if indic. Sent. ko1 09:46 CK Sent. ko1 09:46 Basic Metabolic Panel Sent. ko1 09:46 CBC with Diff Sent. ko1 09:46 D-Dimer Sent. ko1 09:46 LFT's Sent. ko1 09:46 Magnesium Sent. ko1 09:46 NT PRO-BNP Sent. ko1 09:46 PT-INR Sent. ko1 09:46 Troponin HS Sent. ko1 09:49 Triage completed. ko1 09:49 Arm band placed on left wrist. Patient placed in an exam room, on a stretcher, on ko1 library monitor, on pulse oximetry, Patient notified of wait time. 10:07 XRAY Chest (1 view) In Process Unspecified. EDMS 10:30 No provider procedures requiring assistance completed. ko1 10:30 Patient has correct armband on for positive identification. Placed in gown. Bed in low ko1 position. Call light in reach. Side rails up X2. Client placed on continuous cardiac and pulse oximetry monitoring. NIBP monitoring applied. ekg monitor tech on. 11:12 Troponin High Sensitivity: 2 hours after first Sent. ko1 12:29 Troponin High Sensitivity Sent. mb9 12:39 Attila Gibbs MD is Hospitalizing Provider. sp3 17:29 Patient admitted, IV remains in place. ko1 17:29 Report given to VIRIDIANA Curry. ko1 Administered Medications: 09:41 Drug: NS 0.9% IV 1000 ml Route: IV; Rate: 1 bolus; Site: left antecubital; ld1 10:56 Drug: Insulin Regular Human IVP 5 units {Co-Signature: ld1 (Rossi, Marianela RN).} Route: ko1 IVP; Site: left antecubital; 12:29 Drug: Aspirin PO Chewable Tablet 324 mg Route: PO; mb9 Medication: 10:30 VIS not applicable for this client. ko1 Outcome: 12:39 Decision to Hospitalize by Provider. sp3 17:29 Admitted to Tele accompanied by nurse, via wheelchair, room 407, with chart, Report ko1 called to viridiana Curry 17:29 Condition: stable 17:29 Instructed on the need for admit. 17:39 Patient left the ED. mb9 Signatures: Dispatcher [employer] EDMS Marianela Rossi RN RN ld1 Familia Iqbal MD MD sp3 Vale Khan RN RN ko1 Mary Dbobs RN RN mb9 Marianela Rossi RN ld1
--- NOTE | 2022-06-30 12:39 | EDPHYS ---
Physician Documentation [facility] Name: Louisa Rosales III Age: 57 yrs Sex: Male : 1965 Arrival Date: 06/30/2022 Time: 09:26 Bed 19 Private MD: ED Physician Familia Iqbal HPI: 06/30 09:36 This 57 yrs old Male presents to ER via Unassigned with complaints of dizziness, chest sp3 tightness and exhaustion. 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 He denies any other past medical history including heart disease, hypertension, hyperlipidemia, or any other conditions. He previously took metformin but did not like the feeling and therefore has been treating his diabetes with the herbals. He does not regularly check his blood sugar. He denies any headache, neck pain, shortness of breath, back pain, chest pain per se, abdominal pain, nausea, vomiting, diarrhea, fever, URI symptoms, known sick contacts, full syncope, seizure, rash, or any other signs or symptoms on ROS at this time.. Historical: - Allergies: 09:49 No Known Allergies; ko1 - Home Meds: 09:49 None [Active]; ko1 - PMHx: 09:49 diabetes mellitus; ko1 - Immunization history:: Adult Immunizations up to date. - Social history:: Smoking status: Patient denies any tobacco usage or history of. ROS: 09:39 Constitutional: Negative for fever, chills, and weight loss, Eyes: Negative for injury, sp3 pain, redness, and discharge, ENT: Negative for injury, pain, and discharge, Neck: Negative for injury, pain, and swelling, Respiratory: Negative for shortness of breath, cough, wheezing, and pleuritic chest pain, Abdomen/GI: Negative for abdominal pain, nausea, vomiting, diarrhea, and constipation, Back: Negative for injury and pain, MS/Extremity: Negative for injury and deformity, Skin: Negative for injury, rash, and discoloration, Psych: Negative for depression, anxiety, suicide ideation, homicidal ideation, and hallucinations, Allergy/Immunology: Negative for hives, rash, and allergies, Endocrine: Negative for neck swelling, polydipsia, polyuria, polyphagia, and marked weight changes, Hematologic/Lymphatic: Negative for swollen nodes, abnormal bleeding, and unusual bruising. 09:39 All other systems are negative. Exam: 09:39 Constitutional: This is a well developed, well nourished patient who is awake, alert, sp3 and in no acute distress. Head/Face: Normocephalic, atraumatic. Eyes: Pupils equal round and reactive to light, extra-ocular motions intact. Lids and lashes normal. Conjunctiva and sclera are non-icteric and not injected. Cornea within normal limits. Periorbital areas with no swelling, redness, or edema. ENT: Nares patent. No nasal discharge, no septal abnormalities noted. External auditory canals are clear. Oropharynx with no redness, swelling, or masses, exudates, or evidence of obstruction, uvula midline. Mucous membranes moist. Neck: Trachea midline, no thyromegaly or masses palpated, and no cervical lymphadenopathy. Supple, full range of motion without nuchal rigidity, or vertebral point tenderness. No Meningismus. Chest/axilla: Normal chest wall appearance and motion. Nontender with no deformity. No lesions are appreciated. Cardiovascular: Regular rate and rhythm with a normal S1 and S2. No gallops, murmurs, or rubs. Normal PMI, no JVD. No pulse deficits. Respiratory: Lungs have equal breath sounds bilaterally, clear to auscultation and percussion. No rales, rhonchi or wheezes noted. No increased work of breathing, no retractions or nasal flaring. Abdomen/GI: Soft, non-tender, with normal bowel sounds. No distension or tympany. No guarding or rebound. No evidence of tenderness throughout. Back: No spinal tenderness. No costovertebral tenderness. Full range of motion. Skin: Warm, dry with normal turgor. Normal color with no rashes, no lesions, and no evidence of cellulitis. MS/ Extremity: Pulses equal, no cyanosis. Neurovascular intact. Full, normal range of motion. Neuro: Awake and alert, GCS 15, oriented to person, place, time, and situation. Cranial nerves II-XII grossly intact. Motor strength 5/5 in all extremities. Sensory grossly intact. Cerebellar exam normal. Normal gait. Psych: Awake, alert, with orientation to person, place and time. Behavior, mood, and affect are within normal limits. 09:39 ECG was reviewed by the Attending Physician. EKG demonstrates normal sinus rhythm at 96 bpm with normal intervals, normal QRS, normal axis, normal ST/T-segment's without evidence of acute ischemia. Vital Signs: 09:49 BP 148 / 91; Pulse 85; Resp 18; Pulse Ox 96% on R/A; ko1 11:14 BP 152 / 74; Pulse 84; Resp 18; Pulse Ox 97% on R/A; ko1 12:00 BP 171 / 77; Pulse 80; Resp 18; Pulse Ox 98% ; ko1 13:00 BP 139 / 96; Pulse 78; Pulse Ox 98% ; ko1 14:00 BP 142 / 98; Pulse 87; Resp 18; Pulse Ox 99% ; ko1 15:00 BP 139 / 81; Pulse 86; Pulse Ox 98% ; ko1 16:00 BP 137 / 81; Pulse 81; Resp 18; Pulse Ox 98% ; ko1 MDM: 09:32 Patient medically screened. sp3 09:40 Data reviewed: vital signs, nurses notes, EMS record, lab test result(s), EKG, sp3 radiologic studies. ED course: 57-year-old male with diet-controlled diabetes now with heat exhaustion type presentation with mild chest tightness. Will obtain laboratory values including troponin, CK, lactate, electrolytes, cell counts, chest x-ray, EKG, IV fluids normal saline 1 L, and general observation. Patient is not having current symptoms and his previous symptoms have fully resolved. Consider repeat troponin and safe discharge given low heart score. Patient's glucose for EMS was 384 so he may need intervention on that front pending laboratory evaluation.. 12:28 ED course: Patient had a second troponin level of 77. This rules patient in for NSTEMI sp3 and we will admit patient with cardiology consultation.. 13:28 ED course: Discussed with cardiology Dr. Park who will be seeing patient is a sp3 consult. Patient remains pain-free at the moment.. 06/30 09:31 Order name: Basic Metabolic Panel; Complete Time: 10:44 sp3 06/30 09:31 Order name: CBC with Diff; Complete Time: 10:44 sp3 06/30 09:31 Order name: D-Dimer; Complete Time: 10:44 sp3 06/30 09:31 Order name: LFT's; Complete Time: 10:44 sp3 06/30 09:31 Order name: Magnesium; Complete Time: 10:44 sp3 06/30 09:31 Order name: NT PRO-BNP; Complete Time: 10:44 sp3 06/30 09:31 Order name: PT-INR; Complete Time: 10:44 sp3 06/30 09:31 Order name: Troponin HS; Complete Time: 10:44 sp3 06/30 09:31 Order name: CK; Complete Time: 10:44 sp3 06/30 09:31 Order name: UAM; Complete Time: 10:44 sp3 06/30 09:31 Order name: Lactate w/ 2H reflex if indic.; Complete Time: 10:44 sp3 06/30 10:46 Order name: Troponin High Sensitivity: 2 hours after first; Complete Time: 12:25 sp3 06/30 12:01 Order name: Glucose, Ancillary Testing; Complete Time: 12:10 EDMS 06/30 12:11 Order name: Troponin High Sensitivity mb9 06/30 12:57 Order name: Lactate Sepsis 2 HR Follow-up EDMS 06/30 16:08 Order name: Magnesium EDMS 06/30 16:08 Order name: Phosphorus EDMS 06/30 16:08 Order name: T4 Free EDMS 06/30 16:08 Order name: Thyroid Stimulating Hormone EDMS 06/30 16:08 Order name: Urinalysis w/ reflexes EDMS 06/30 16:08 Order name: Basic Metabolic Panel EDMS 06/30 16:08 Order name: Basic Metabolic Panel EDMS 06/30 16:08 Order name: CBC with Automated Diff EDMS 06/30 16:08 Order name: CBC with Automated Diff EDMS 06/30 16:08 Order name: Lipid Profile EDMS 06/30 16:08 Order name: Lipid Profile EDMS 06/30 16:09 Order name: Hemoglobin A1c EDMS 06/30 09:31 Order name: XRAY Chest (1 view); Complete Time: 10:44 sp3 06/30 15:44 Order name: Echo with Doppler EDMS 06/30 09:31 Order name: EKG; Complete Time: 09:32 sp3 06/30 16:08 Order name: 60g Consistent Carbohydrate (ADA 1800/2000) EDMS 06/30 16:08 Order name: CONS Physician Consult [facility] 06/30 09:31 Order name: Cardiac monitoring; Complete Time: 09:38 sp3 06/30 09:31 Order name: EKG - Nurse/Tech; Complete Time: 09:38 sp3 06/30 09:31 Order name: IV Saline Lock; Complete Time: 09:42 sp3 06/30 09:31 Order name: Labs collected and sent; Complete Time: 09:38 sp3 06/30 09:31 Order name: O2 Per Protocol; Complete Time: 09:38 sp3 06/30 09:31 Order name: O2 Sat Monitoring; Complete Time: 09:38 sp3 Administered Medications: 09:41 Drug: NS 0.9% IV 1000 ml Route: IV; Rate: 1 bolus; Site: left antecubital; ld1 10:56 Drug: Insulin Regular Human IVP 5 units {Co-Signature: lenny1 (Marianela Rossi RN).} Route: ko1 IVP; Site: left antecubital; 12:29 Drug: Aspirin PO Chewable Tablet 324 mg Route: PO; mb9 Disposition Summary: 06/30/22 12:39 Hospitalization Ordered Hospitalization Status: Inpatient Admission sp3 Provider: Attila Gibbs sp3 Location: Telemetry/MedSurg (Inpatient) sp3 Condition: Stable sp3 Problem: new sp3 Symptoms: have worsened sp3 Bed/Room Type: Standard sp3 Room Assignment: 407(06/30/22 16:15) bd Diagnosis - NSTEMI sp3 Forms: - Medication Reconciliation Form sp3 - SBAR form sp3 Signatures: Dispatcher [employer] Argenis Miranda Corey, MD MD cha Sims, Lauren, RN RN ld1 Familia Iqbal MD MD sp3 Vale Khan RN RN ko1 Mary Dobbs RN RN [id number] Marianela Rossi RN1 Corrections: (The following items were deleted from the chart) 16:15 12:39 sp3 bd
[2022-06-30] MEDS ORDERED: ACETAMINOPHEN 325 MG TABLET PO PRN (16:03)
[2022-06-30] MEDS ORDERED: HYDROCODONE/APAP 5/325 MG TAB PO PRN (16:03)
[2022-06-30] MEDS ORDERED: ONDANSETRON 4 MG/2 ML VIAL IV PRN (16:06)
--- NOTE | 2022-06-30 16:08 | P.HP ---
Certification for Inpatient Patient admitted to: Observation With expected LOS: <2 Midnights Patient will require the following post-hospital care: None Practitioner: I am a practitioner with admitting privileges, knowledge of patient current condition, hospital course, and medical plan of care. Services: Services provided to patient in accordance with Admission requirements found in Title 42 Section 412.3 of the Code of Federal Regulations Patient History Date of Service: 06/30/22 Reason for admission: Chest pain History of Present Illness: Patient is a 57-year-old male with a past medical history significant for hypertension and DM 2 who presents with complaint of chest pain onset this morning. 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 Patient indicated that he started having episodes of diaphoresis. Patient rated pain as 8/10 in severity and described pain as stabbing in quality. Patient reported associated signs and symptoms of headache, dizziness and palpitation. Patient denies any other signs and sym ptoms. Symptoms are aggravated or relieved by nothing. Patient decided to present to the hospital due to worsening symptoms. Allergies No Known Allergies Allergy (Unverified 06/30/22 16:11) - Past Medical/Surgical History -: DM 2 -: HTN Past Surgical History: Reviewed- Non-Contributory - Family History Mother -: Heart disease, Other (see notes) (CVA) Sister -: Other (see notes) (CVA) - Social History Smoking Status: Never smoker Alcohol use: Yes CD- Drugs: No Place of Residence: Home Review of Systems General: Sweats Eyes: Unremarkable ENT: Unremarkable Respiratory: Unremarkable Cardiovascular: Chest Pain, Palpitations Gastrointestinal: Unremarkable Genitourinary: Unremarkable Musculoskeletal: Unremarkable Integumentary: Unremarkable Neurological: Other (Headache, dizziness) Lymphatics: Unremarkable Physical Examination - Physical Exam General: Alert, In no apparent distress, Oriented x3 HEENT: Atraumatic, PERRLA, Mucous membr. moist/pink, EOMI, Sclerae nonicteric Neck: Supple, 2+ carotid pulse no bruit, No LAD, Without JVD or thyroid abnormal ity Respiratory: Clear to auscultation bilaterally, Normal air movement Cardiovascular: No edema, Regular rate/rhythm, Normal S1 S2 Capillary refill: <2 Seconds Gastrointestinal: Normal bowel sounds, Soft and benign, Non-distended, No tenderness Musculoskeletal: No clubbing, No swelling, No tenderness Integumentary: No rashes Neurological: Normal gait, Normal speech, Normal strength at 5/5 x4 extr, Normal tone, Normal affect Lymphatics: No axilla or inguinal lymphadenopathy - Studies Laboratory Data (last 24 hrs) 06/30/22 09:35: PT 11.0, INR 1.00 06/30/22 09:35: WBC 5.40, Hgb 15.2, Hct 43.5, Plt Count 179 06/30/22 09:35: Sodium 135 L, Potassium 3.6, BUN 16, Creatinine 0.95, Glucose 373 H, Magnesium 1.9, Total Bilirubin 0.8, AST 24, ALT 43, Alkaline Phosphatase 99 Assessment and Plan - Plan --Chest pain. To rule out ACS. Serial troponins trending up. Cardiology consulted. Echocardiogram pending to assess cardiac structures and functions. Telemetry to monitor for any significant arrhythmia. Will await further recommendation from print support specialist. --DM2 with hyperglycemia. BS monitoring with sliding scale insulin, pre-meal insulin and Lantus. --Hypertension. Poorly controlled. We will manage BP with hydralazine as needed. --Headache. Tylenol as needed. -- DVT prophylaxis with Lovenox subQ. Discharge Plan: Home Plan to discharge in: 48 Hours - Advance Directives Does patient have a Living Will: No Does patient have a Durable POA for Healthcare: No - Code Status/Comfort Care Code Status Assessed: Yes Physician Review: Patient Assessed, Agree with Above Assessment and Plan Critical Care: No
[2022-06-30 17:59] VITALS: BMI 28.4
[2022-06-30] MEDS: INSULIN -REGULAR HUMAN 50 UNIT/0.5 ML ML SQ SCH ×2 (18:23→22:22)
[2022-06-30] MEDS ORDERED: D50W 25 GM/50 ML SYRINGE IV PRN (19:42)
[2022-06-30] MEDS ORDERED: GLUCAGON 1 MG/VIAL IM PRN (19:42)
[2022-06-30] MEDS ORDERED: HYDRALAZINE HCL 20 MG/ML VIAL IV PRN (19:44)
[2022-06-30] MEDS ORDERED: D10W 125 ML IV PRN (19:51)
[2022-06-30] MEDS: INSULIN LISPRO 100 UNIT/1 ML SQ SCH (20:00)
[2022-06-30 20:52] LABS: Magnesium 1.9 mg/dL (1.6-2.4); Phosphorus 2.2 mg/dL (2.5-4.9); Thyroid Stimulating Hormone 2.57 uIU/mL (0.358-3.740)
[2022-06-30] MEDS: INSULIN GLARGINE 100 UNIT/ML SQ SCH (22:23)
[2022-07-01 06:05] LABS: Absolute Lymphocytes (CBC) 2.7 K/uL (0.7-4.9); Lymphocytes % 45.6 % (15.3-44.8); MCV 92.4 fL (80-100); MPV 7.1 fL (7.6-11.3); RBC Red Blood Cell Count 4.65 M/uL (4.33-5.43)
[2022-07-01 06:25] LABS: BUN Blood Urea Nitrogen 15 mg/dL (7-18); Bicarbonate 25 mEq/L (21-32); Glomerular Filtration Rate 98 ml/min (=/>90); Glucose Level 318 mg/dL (74-106); HDL Cholesterol 26 mg/dL (40-60); Potassium 3.9 mEq/L (3.5-5.1); Sodium Level 136 mEq/L (136-145)
[2022-07-01 06:37] LABS: LDL, Direct 103 mg/dL (100-129)
[2022-07-01] MEDS ORDERED: REGADENOSON 0.4 MG/5 ML SYR IV ONE (07:07)
--- NOTE | 2022-07-01 07:31 | P.PN ---
Date of Service: 07/01/22 Subjective: Feeling pretty good today; wanting to go home no chest pain this morning no new / worsening problems ROS: 10 point ROS as noted above, otherwise negative Physical Exam: GEN: Alert, oriented, NAD HEENT: Normal conjunctiva, sclera anicteric CV: Regular rate and rhythm, no edema Pulm: Nonlabored respirations on room air ABD: Soft, nontender, nondistended Neuro: Normal speech, normal affect vitals reviewed Problem List: NSTEMI NIDDM2 with hyperglycemia Hypertension Headache NSTEMI Serial troponins trending up, monitor on telemetry chest pain resolved Cardiology consulted Stress test 07/01 - The apical and apical segment anterior wall reversible defect, suggestive of myocardial ischemia Cath planned 07/02 Echocardiogram pending DM2 with hyperglycemia BS monitoring with sliding scale insulin, pre-meal insulin and Lantus A1c: 9s patient taking "natural stuff" to help with his diabetes discussed risk of uncontrolled diabetes, does not want any medications/prescriptions, states he will continue what he is doing and follow up with PCP Hypertension monitor closely, PRN meds, may need halfway med Headache Tylenol as needed VTE: Lovenox subQ Code: Full Dispo: Home 1-2 days pending cath 07/02
[2022-07-01] MEDS ORDERED: POTASSIUM CL SA 10 MEQ TAB PO ONE (09:00)
[2022-07-01] MEDS: ENOXAPARIN 40 MG/0.4 ML SQ SCH (09:00)
--- NOTE | 2022-07-01 09:12 | RAD REPORT ---
EXAM DESCRIPTION: NM - Rest Stress Cardiac Imaging - 07/01/2022 7:55 am CLINICAL HISTORY: CP COMPARISON: No comparisons TECHNIQUE: The patient was administered approximately 10.3 mCi of Tc 99m Sestamibi prior to resting SPECT imaging of the heart. The patient was then administered approximately 32.3 mCi of Tc 99m Sestam ibi following exercise or pharmacologic stress. Multiplanar SPECT images were reviewed. FINDINGS: Apical and apical segment anterior wall reversible defect, suggesting myocardial ischemia. No fixed defect is seen to suggest hibernating myocardium or scarred myocardium. The end diastolic volume is 101 ml, the end systolic volume is 40 ml, and the ejection fraction is 61 %. IMPRESSION: The apical and apical segment anterior wall reversible defect, suggestive of myocardial ischemia. No fixed defect to suggest an infarct. Normal left ventricular ejection fraction, 61%.
[2022-07-01] MEDS: ASPIRIN 81 MG CHEWABLE TABLET PO SCH (09:13)
[2022-07-01] MEDS: INSULIN LISPRO 100 UNIT/1 ML SQ SCH ×3 (09:15→16:27)
[2022-07-01] MEDS: INSULIN -REGULAR HUMAN 50 UNIT/0.5 ML ML SQ SCH ×4 (09:15→20:56)
[2022-07-01 12:42] LABS: Specific Gravity 1.018 (1.005-1.030); Urine Bacteria None Seen /HPF (<20); Urine Bilirubin NEGATIVE (Negative); Urine Blood Negative (Negative); Urine Clarity Clear (Clear); Urine Color Colorless (Yellow); Urine Glucose 4+ (Over) (Negative); Urine Protein NEGATIVE (Negative); Urine RBC <5 /HPF (None Seen); Urine Urobilinogen Normal (Normal); Urine pH 6.5 (5.0-7.0)
--- NOTE | 2022-07-01 13:38 | EKG ---
Test Date: 2022-06-30 Test Time: 09:33:41 Bridge Crane Operator: ALE MEASUREMENT RESULTS: Intervals: Rate: 96 MA: 146 QRSD: 94 QT: 366 QTc: 462 [place]: P: 49 MA: 146 QRS: 51 T: 46 INTERPRETIVE STATEMENTS: Normal sinus rhythm Normal ECG Compared to ECG 06/13/2022 23:05:38 No significant changes Electronically Signed On 07-01-22 13:37:56 CDT by Zelalem Darby
--- NOTE | 2022-07-01 14:03 | ECHO ---
HEIGHT: 5 ft 7 in WEIGHT: 181 lb 9.6 oz DATE OF STUDY: 07/01/[address]: Campos Park MD 2-DIMENSIONAL: YES M.MODE: YES DOPPLER: YES COLOR FLOW: YES TDS: PORTABLE: YES DEFINITY: BUBBLE STUDY: DIAGNOSIS: CHEST PAIN CARDIAC HISTORY: CATHERIZATION: NO SURGERY: NO PROSTHETIC VALVE: NO PACEMAKER: NO MEASUREMENTS (cm) DIASTOLIC (NORMALS) SYSTOLIC (NORMALS) IVSd 1.0 (0.6-1.2) LA Diam 2.8 (1.9-4.0) LVEF 67% LVIDd 4.3 (3.5-5.7) LVIDs 2.7 (2.0-3.5) %FS 37% LVPWd 1.2 (0.6-1.2) Ao Diam 3.2 (2.0-3.7) 2 DIMENSIONAL ASSESSMENT: RIGHT ATRIUM: NORMAL LEFT ATRIUM: NORMAL RIGHT VENTRICLE: NORMAL LEFT VENTRICLE: NORMAL TRICUSPID VALVE: NORMAL MITRAL VALVE: NORMAL PULMONIC VALVE: NORMAL AORTIC VALVE: NORMAL PERICARDIAL EFFUSION: NONE AORTIC ROOT: NORMAL LEFT VENTRICULAR WALL MOTION: NORMAL DOPPLER/COLOR FLOW: MILD MITRAL REGURGITATION COMMENTS: 1. NORMAL LEFT VENTRICULAR EJECTION FRACTION 55-60% 2. WALL MOTION APPEARS NORMAL (POOR WINDOWS) 3. MILD MITRAL REGURGITATION TECHNOLOGIST: PARAG MCDANIEL
--- NOTE | 2022-07-01 14:16 | TREADPHA ---
DX: CHEST PAIN Date of Study: 07/01/2022 Ht: 5' 7 " Wt: 181 lb 9.6 oz Consulting Physician: TABITHA MEDICATIONS: NO HOME MEDS HISTORY: 57 YEAR OLD MALE WITH COMPLIANTS OF CHEST PAIN. HISTORY OF DIABETES MELLITUS TYPE II, DENIES SMOKING, ALCOHOL USE, SUBSTANCE ABUSE. DENIES PREVIOUS HEART SURGERIES. PHYSICIAL EXAMINATION: RESTING B.P.: 148/78 RESTING H.R.: 62 RESTING EKG: WITHIN NORMAL LIMITS, NORMAL SINUS RHYTHM PROTOCOL: PHARMACOLOGIC EXERCISE TIME: 3:30 B.P. AT PEAK STRESS: 143/83 IMPRESSION: LEXISCAN INJECTED. CARDIOLITE INJECTED PER PROTOCOL. SEE NUCLEAR MEDICINE REPORT. NO SUPRAVENTRICULAR TACHYCARDIA, VENTRICULAR TACHYCARDIA, PREMATURE VENTRICULAR TACHYCARDIA, PREMATURE ATRIAL COMPLEXES NOTED. DENIES CHEST PAIN OR SHORTNESS OF BREATH. NO ELECTROCARDIOGRAM CHANGES OF ISCHEMIA.
[2022-07-01] MEDS: INSULIN GLARGINE 100 UNIT/ML SQ SCH (20:57)
[2022-07-02] MEDS: ASPIRIN 81 MG CHEWABLE TABLET PO SCH (06:15)
[2022-07-02] MEDS: ENOXAPARIN 40 MG/0.4 ML SQ SCH (06:15)
[2022-07-02 06:52] LABS: Magnesium 2.1 mg/dL (1.6-2.4); Potassium 3.7 mEq/L (3.5-5.1)
--- NOTE | 2022-07-02 07:29 | P.PN ---
Date of Service: 07/02/22 Subjective: Feeling pretty good this morning no chest pain or SOB no new / worsening problems waiting for cardiac cath today ROS: 10 point ROS as noted above, otherwise negative Physical Exam: GEN: Alert, oriented, NAD HEENT: Normal conjunctiva, sclera anicteric CV: Regular rate and rhythm, no edema Pulm: Nonlabored respirations on room air ABD: Soft, nontender, nondistended Neuro: Normal speech, normal affect vitals reviewed Problem List: NSTEMI NIDDM2 with hyperglycemia Hypertension Headache nicotine dependence (dip) NSTEMI Serial troponins trending up, monitor on telemetry chest pain resolved Cardiology consulted Stress test 07/01 - The apical and apical segment anterior wall reversible defect, suggestive of myocardial ischemia Cath planned 07/02 Echocardiogram pending DM2 with hyperglycemia BS monitoring with sliding scale insulin, pre-meal insulin and Lantus A1c: 9s patient taking "natural stuff" to help with his diabetes discussed risk of uncontrolled diabetes, does not want any medications/prescriptions, states he will continue what he is doing and follow up with PCP Hypertension monitor closely, PRN meds, may need custodial med Headache Tylenol as needed VTE: Lovenox subQ Code: Full Dispo: Home 1-2 days pending cath 07/02
[2022-07-02] MEDS: INSULIN LISPRO 100 UNIT/1 ML SQ SCH ×3 (07:30→16:50)
[2022-07-02] MEDS: INSULIN -REGULAR HUMAN 50 UNIT/0.5 ML ML SQ SCH ×4 (07:30→20:06)
--- NOTE | 2022-07-02 08:32 | CON ---
Date of Consultation: 06/30/2022 Reason For Consultation: Dizziness, exhaustion, atypical chest pain exertional, was found to have a glucose of 373, normal EKG, normal x-ray. Denied nausea, vomiting, diaphoresis, PND, orthopnea, peda l edema, palpitation, or syncope. Troponin is negative. Past Medical History: Diabetes. Allergies: NONE. Review of Systems: Negative. Social History: Positive for tobacco. Family History: Unremarkable. Medications: At home are none. Physical Examination: Was done by Dr. Gibbs. Vital Signs: Stable, afebrile. HEENT: Negative. Neck: Supple with no bruit. Chest: Clear. Cardiac: Normal. Abdomen: Benign. Extremities: Revealed no clubbing, cyanosis, or edema. Diagnostic Data: As stated earlier. Impression And Plan: 1.Diabetes, poorly controlled. 2.Atypical chest pain with dizziness, exhaustion, may be secondary to hypoglycemia and poor overall functional status. Nevertheless, he has ruled out for an AR, but I would feel more comfortable [facility] that is poorly controlled diabetes and his age to obtain a 2D echocardiogram and a Lexiscan before he goes home. JONELLE/AHMET Voice ID: [id number] Report ID: [id number]
[2022-07-02] MEDS ORDERED: FENTANYL CITR 100 MCG/2 ML ONE (13:40)
[2022-07-02] MEDS ORDERED: HEPA 1000U/500MLS 2,000 UNIT/1,000 ML BAG IV ONE (13:40)
[2022-07-02] MEDS ORDERED: MIDAZOLAM HCL 2 MG/2 ML INJ ONE (13:40)
[2022-07-02] MEDS ORDERED: HEPARIN 5000 UNIT/ML 1 ML VIAL ONE (13:41)
[2022-07-02] MEDS ORDERED: HEPARIN 10,000 UNIT/10 ML VIAL IV ONE (13:41)
[2022-07-02] MEDS ORDERED: TICAGRELOR 90 MG TABLET PO ONE (13:41)
[2022-07-02] MEDS ORDERED: ATROPINE SULF 1 MG/10 ML SYR IV ONE (13:41)
[2022-07-02] MEDS ORDERED: ASPIRIN 325 MG TAB ONE (13:41)
[2022-07-02] MEDS ORDERED: VERAPAMIL HCL 10 MG/4 ML VIAL IV ONE (13:41)
[2022-07-02] MEDS ORDERED: CLOPIDOGREL 75 MG TABLET ONE (13:41)
[2022-07-02] MEDS ORDERED: Phenylephrine HCl 10 MG/ML 1 ML VIAL ONE (13:42)
[2022-07-02] MEDS ORDERED: METHYLPREDNISOLONE 125 MG INJ ONE (13:42)
[2022-07-02] MEDS ORDERED: DIPHENHYDRAMINE 50 MG/ML VIAL ONE (13:42)
[2022-07-02] MEDS ORDERED: NA CHLORIDE 0.9% 500 ML ONE (14:10)
[2022-07-02] MEDS ORDERED: ONDANSETRON 4 MG/2 ML VIAL ONE ×2 (14:54→15:03)
--- NOTE | 2022-07-02 16:29 | OP ---
Date of Procedure: 07/02/2022 Surgeon: JANIE ONEAL Procedures Performed: 1.Selective coronary angiogram. 2.Left heart catheterization. 3.PCI of severe mid LAD and moderate proximal LAD. I used 3.0 x 48 mm Synergy drug-eluting stent. Indication: Acute coronary syndrome. Access: Right femoral artery 6-Slovenian closed with 6-Slovenian Angio-Seal. Complications: None. Bleeding: Less than 20 mL. Anesthesia: Total sedation time was 50 minutes. Description Of Procedure: After risks, benefits, alternatives were explained, the patient agreed to procedure and signed informed consent. The patient has history of iodine allergy, so he was given 12 5 of Solu-Medrol and 50 mg of Benadryl IV before starting and then I accessed the right femoral arter y using a micropuncture kit, ultrasound guidance and fluoroscopy, placed a 6-Slovenian Dow[place] sheath a nd took 6-Slovenian JL4 catheter over a J-wire into the aortic root, engaged the left main, took standar d views and then I exchanged for a 6-Slovenian JR4 catheter, engaged the RCA, took standard views and ca theter was pushed over the wire into the LV, measured the LVEDP, pullback did not record any gradient . Then, we gave systemic heparin to assure ACT level above 250 and gave 600 mg of Plavix and 325 asp irin and then I took a 6-Slovenian XB left 3.5 guide into the aortic root, engaged left main and then I took a short Run-Through wire, advanced it into the left main and then LAD, placed it distally, and t hen using a 3.0 x 20 Compliant balloon high-pressure, lesions expanded very well and then I placed 3. 0 x 48 mm Synergy drug-eluting stent with excellent results. Then, I removed the wire and final rosa maria ogram was satisfactory. I removed the guide and then the sheath and placed a 6-Slovenian Angio-Seal for closure with good hemostasis. Findings: 1.Left main; large and normal. 2.LAD; proximal 20% to 30%, then mid diffuse 80% with 2 separate locations becomes 99% and then dist al portion of the LAD appears to be normal. Diagonal branch 1 has proximal 50% and the diagonal bran ch 2 has also ostial above 50%. 3.The left circumflex is nondominant and moderate-sized normal. 4.RCA; large and dominant with mid 30% and distal 30%, then luminal irregularities. 5.Normal LVEDP around 10 mmHg. Conclusion: Severe mid LAD stenosis, which is a culprit, status post successful PCI as above. Recommendation: Aspirin, Plavix, high-dose statin. SR/MODL Voice ID: [id number] Report ID: [id number]
[2022-07-02] MEDS: INSULIN GLARGINE 100 UNIT/ML SQ SCH (20:07)
[2022-07-02] MEDS ORDERED: ATORVASTATIN 40 MG TAB PO SCH (21:00)
[2022-07-02 21:10] VITALS: O2SAT 97
[2022-07-03 04:26] LABS: Magnesium 2.1 mg/dL (1.6-2.4); Potassium 4.3 mEq/L (3.5-5.1)
--- NOTE | 2022-07-03 07:29 | P.DS ---
Admission Date: 07/01/22 Discharge Date: 07/03/22 Disposition: ROUTINE DISCHARGE Discharge Condition: GOOD Reason for Admission: Chest pain Consultations: Cardiology - Dr. Darby / Dr. Park Brief History of Present Illness: 57yo M, PMH: hypertension and DM 2 Patient presents with complaint of chest pain onset this morning. 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 Patient indicated that he started having episodes of diaphoresis. Patient rated pain as 8/10 in severity and described pain as stabbing in quality. Patient reported associated signs and symptoms of headache, dizziness and palpitation. Patient denies any other signs and symptoms. Symptoms are aggravated or re lieved by nothing. Patient decided to present to the hospital due to worsening symptoms. Hospital Course: Problem List: NSTEMI NIDDM2 with hyperglycemia Hypertension Headache nicotine dependence (dip) Patient presented with acute chest pain. Troponin elevated x1. Chest xray, EKG were negative. Cardiology was consulted. Echocardiogram was normal. He had a positive stress test so he underwent cardiac cath which noted 99% blockage of LAD. He underwent successful stent placement and was monitored overnight without any issues/co mplications. During his hospitalization, he was noted to have unconrolled diabetes, but did not want any medications/prescriptions and that he would continue what he was doing and follow up with his PCP. Follow up: PCP 3-5 days Cardiology within a few weeks Aspirin, plavix, statin, metoprolol. Discussed and recommended nicotine cessation Cath report findings (07/02): 1. Left main; large and normal. 2. LAD; proximal 20% to 30%, then mid diffuse 80% with 2 separate locations becomes 99% and then distal portion of the LAD appears to be normal. Diagonal branch 1 has proximal 50% and the diagonal branch 2 has also ostial above 50%. 3. The left circumflex is nondominant and moderate-sized normal. 4. RCA; large and dominant with mid 30% and then luminal irregularities. 5. Normal LVEDP around 10 mmHg. Conclusion: Severe mid LAD stenosis, which is a culprit, status post successful PCI. Physical Exam: GEN: Alert, oriented, NAD HEENT: Normal conjunctiva, sclera anicteric CV: Regular rate and rhythm, no edema Pulm: Nonlabored respirations on room air ABD: Soft, nontender, nondistended Neuro: Normal speech, normal affect Vital Signs/Physical Exam: Temp Pulse Resp BP Pulse Ox 97.4 F 83 16 134/81 97 07/03/22 04:00 07/03/22 04:00 07/03/22 04:00 07/03/22 04:00 07/03/22 04:00 Laboratory Data at Discharge: WBC 5.90 thou/uL (4.3-10.9) 07/01/22 05:25 Hgb 15.0 g/dL (13.6-17.9) 07/01/22 05:25 Hct 43.0 % (39.6-49.0) 07/01/22 05:25 Plt Count 169 thou/uL (152-406) 07/01/22 05:25 PT 11.0 SECONDS (9.5-12.5) 06/30/22 09:35 INR 1.00 06/30/22 09:35 Sodium 134 mEq/L (136-145) L 07/03/22 03:54 Potassium 4.3 mEq/L (3.5-5.1) D 07/03/22 03:54 BUN 20 mg/dL (7-18) H 07/03/22 03:54 Creatinine 0.96 mg/dL (0.70-1.30) 07/03/22 03:54 Glucose 306 mg/dL (74-106) H 07/03/22 03:54 Phosphorus 2.2 mg/dL (2.5-4.9) L 06/30/22 19:58 Magnesium 2.1 mg/dL (1.6-2.4) 07/03/22 03:54 Total Bilirubin 0.8 mg/dL (0.2-1.0) 06/30/22 09:35 AST 24 U/L (15-37) 06/30/22 09:35 ALT 43 U/L (16-61) 06/30/22 09:35 Alkaline Phosphatase 99 U/L (45-117) 06/30/22 09:35 Triglycerides 402 mg/dL (<150) H 07/01/22 05:25 Cholesterol 173 mg/dL (<200) 07/01/22 05:25 LDL Cholesterol Direct 103 mg/dL (100-129) 07/01/22 05:25 HDL Cholesterol 26 mg/dL (40-60) L 07/01/22 05:25 Cholesterol/HDL Ratio 6.65 07/01/22 05:25 Home Medications: Aspirin Chewable [Aspirin Chewable*] 81 mg PO DAILY tab.chew 07/03/22 Atorvastatin Calcium [Lipitor] 40 mg PO BEDTIME 30 Days #30 tab 07/03/22 Clopidogrel Bisulfate [Plavix*] 75 mg PO DAILY 30 Days #30 tab 07/03/22 Metoprolol Tartrate [Lopressor*] 0.5 tab PO BID 30 Days #30 tab 07/03/22 New Medications: Atorvastatin Calcium [Lipitor] 40 mg PO BEDTIME 30 Days #30 tab Metoprolol Tartrate [Lopressor*] 0.5 tab PO BID 30 Days #30 tab Clopidogrel Bisulfate [Plavix*] 75 mg PO DAILY 30 Days #30 tab Physician Discharge Instructions: Patient presented with acute chest pain. Troponin elevated x1. Chest xray, EKG were negative. Cardiology was consulted. Echocardiogram was normal. He had a positive stress test so he underwent cardiac cath which noted 99% blockage of LAD. He underwent successful stent placement and was monitored overnight without any issues/complications. During his hospitalization, he was noted to have unconrolled diabetes, but did not want any medications/prescriptions and that he would continue what he was doing and follow up with his PCP. Follow up: PCP 3-5 days Cardiology within a few weeks Aspirin, plavix, statin, metoprolol. Discussed and recommended nicotine cessation Cath report findings (07/02): 1. Left main; large and normal. 2. LAD; proximal 20% to 30%, then mid diffuse 80% with 2 separate locations becomes 99% and then distal portion of the LAD appears to be normal. Diagonal branch 1 has proximal 50% and the diagonal branch 2 has also ostial above 50%. 3. The left circumflex is nondominant and moderate-sized normal. 4. RCA; large and dominant with mid 30% and then luminal irregularities. 5. Normal LVEDP around 10 mmHg. Conclusion: Severe mid LAD stenosis, which is a culprit, status post successful PCI. Followup: NONE,NONE [Primary Care Provider] - Time spent managing pt's care (in minutes): 45
[2022-07-03] MEDS: INSULIN -REGULAR HUMAN 50 UNIT/0.5 ML ML SQ SCH (07:30)
[2022-07-03] MEDS: INSULIN LISPRO 100 UNIT/1 ML SQ SCH (07:30)
[2022-07-03] MEDS: ASPIRIN 81 MG CHEWABLE TABLET PO SCH (08:08)
[2022-07-03] MEDS: ENOXAPARIN 40 MG/0.4 ML SQ SCH (08:09)
[2022-07-03 08:11] VITALS: BP 137/69; TEMP 97.2
[2022-07-03] MEDS ORDERED: CLOPIDOGREL 75 MG TABLET PO SCH (09:00)
--- NOTE | 2022-07-03 15:32 | PN ---
Date of Progress Note: 07/01/2022 Mr. Rosales had come in with atypical chest pain, multiple cardiac risk factors, but specifically poo rly controlled diabetes. Echocardiogram was normal. Lexiscan was abnormal. We will plan a heart ca theterization on him on July 02, 2022. He understands the risk and the benefits of the procedure, and he agreed to proceed. JONELLE/AHMET Voice ID: [id number] Report ID: [id number]
== END 2022-07-03 08:43 | disposition home or self-care (01) | DRG 247 ==
LOC: ER 09:26 → ERHOLD 16:02 → 4TH 17:03 → OBSVTOIN 07-01 10:20
PROVIDERS: ADMIT Hospitalist; ATTEND Hospitalist
PROC: 027034Z Dilation of Coronary Artery, One Artery with Drug-eluting Intraluminal Device, Percutaneous Approach (ICD-10-PCS; principal; 2022-07-02)
PROC: 4A023N7 Measurement of Cardiac Sampling and Pressure, Left Heart, Percutaneous Approach (ICD-10-PCS; 2022-07-02)
PROC: B2111ZZ Fluoroscopy of Multiple Coronary Arteries using Low Osmolar Contrast (ICD-10-PCS; 2022-07-02)
DX: I21.4 Non-ST elevation (NSTEMI) myocardial infarction (principal); I10 Essential (primary) hypertension; E11.65 Type 2 diabetes mellitus with hyperglycemia; F17.200 Nicotine dependence, unspecified, uncomplicated; Z79.82 Long term (current) use of aspirin; Z79.02 Long term (current) use of antithrombotics/antiplatelets; Z79.899 Other long term (current) drug therapy
CPT/HCPCS: 36415; 71045; 76937; 78452; 80048; 80061; 80076; 81001; 82550; 82947; 83036; 83605; 83735; 83880; 84100; 84439; 84443; 84484; 85025; 85347; 85379; 85610; 92928; 93005; 93017; 93306; 93458; 96374; 99285; A9500; C1725; C1760; C1893; G0269; G0378; J0461; J1200; J1644; J1650; J1815; J2250; J2370; J2405; J2785; J2930; J3010; J7030; J7040; Q9967